=== PATIENT | female | born 1955 | race Caucasian/White ===

== ENCOUNTER 2023-05-29 20:05 | Inpatient (IN) ==
[2023-05-29] MEDS ORDERED: LASIX IVP STA (20:54)
[2023-05-29 20:55] LABS: BASOPHILS # (AUTO) 0.1 K/uL (0-0.2); BASOPHILS % (AUTO) 0.7 % (0.0-3.0); EOSINOPHILS # (AUTO) 0.6 K/ul (0.0-0.7); EOSINOPHILS % (AUTO) 3.3 % (0.0-7.0); HEMATOCRIT 31.9 % (37.0-47.0); HEMOGLOBIN 10.8 g/dl (12.0-16.0); IMMATURE GRANULOCYTE # (AUTO) 0.1 (0.0-1.0); IMMATURE GRANULOCYTE % (AUTO) 0.4 % (0.0-5.0); LYMPHOCYTES # (AUTO) 1.4 K/uL (0.60-3.4); LYMPHOCYTES % (AUTO) 8.5 (10.0-50.0); MEAN CORPUSCULAR HEMOGLOBIN 34.5 pg (27.0-31.0); MEAN CORPUSCULAR HGB CONC 33.9 (31.8-35.4); MEAN CORPUSCULAR VOLUME 101.9 fl (81.0-99.0); MONOCYTES # (AUTO) 1.2 K/uL (0.4-2.0); MONOCYTES % (AUTO) 7.3 (0-10); NEUTROPHILS # (AUTO) 13.2 K/ul (2.0-6.9); NEUTROPHILS % (AUTO) 79.8 % (42.2-75.2); PLATELET COUNT 195 10^3/uL (140-440); RDW COEFFICIENT OF VARIATION 14.8 % (11.6-14.8); RED BLOOD COUNT 3.13 10^6/ul (4.20-5.40); WHITE BLOOD COUNT 16.51 K/ul (4.6-10.2)
--- NOTE | 2023-05-29 21:05 | DI ---
EXAM: CHEST ONE-VIEW HISTORY: Cough COMPARISON: AP chest from 05/22/2023 FINDINGS: The cardiomediastinal silhouette is prominent. The pulmonary vasculature is normal. No c onsolidating infiltrates are detected. No pneumothoraces or pleural effusions. IMPRESSION: 1. No acute cardiopulmonary disease. .
[2023-05-29 21:08] LABS: ALANINE AMINOTRANSFERASE 31.3 U/L (0-35); ALBUMIN 2.77 g/dL (3.5-5.0); ALKALINE PHOSPHATASE 237.1 U/L (53-141); ASPARTATE AMINO TRANSFERASE 76.3 U/L (14-36); BILIRUBIN,TOTAL 3.56 mg/dL (0.2-1.3); BLOOD UREA NITROGEN 5.8 mg/dL (7-17); CALCIUM 7.53 mg/dL (8.4-10.2); CARBON DIOXIDE 27.8 mmol/L (22-30.0); CREATININE 0.72 mg/dL (0.60-1.30); GLUCOSE 108.8 mg/dL (74-106); POTASSIUM 4.37 mmol/L (3.5-5.1); SODIUM 134.8 mmol/L (134.5-145); TOTAL PROTEIN 6.99 g/dL (6.3-8.2)
[2023-05-29 21:20] LABS: TROPONIN I 0.013 ng/ml (0.0000-0.120)
--- NOTE | 2023-05-29 22:19 | ED.PDOC ---
General ED Provider: Dr. MICHAEL BISHOP MD Chief Complaint: Extremity Swelling/Pain Stated Complaint: Pain and swelling in both lower extremities Time Seen by Provider: 05/29/23 20:25 Information Source: Patient and EMT Nursing and Triage Documentation Reviewed and Agree: Yes Review of Systems Review Of Systems Constitutional: Reports Malaise and Weakness All Other Systems: Reviewed and Negative [facility] Social History (Updated 05/30/23 @ 01:35 by TOD LORENZO RN) Smoking and tobacco status: Unknown if ever smoked Physical Exam Physical Exam Appearance: Reports Ill-appearing and No pain distress Ill-appearing: Mild Pain Distress: None Eyes: Reports ELVIA ENT: Reports Ears normal and Nose normal Neck: Supple Respiratory: Reports Airway patent, Breath sounds clear and Breath sounds equal Cardiovascular: Reports Pulses normal, No rub and No murmur GI/: Reports Soft, Nontender and No masses Musculoskeletal: Reports Edema (2+ edema of BLE) Skin: Reports Warm Neurological: Reports Sensation intact Psychiatric: Reports Affect appropriate Interpretation EKG Interpretation EKG Interpretation By: ED Physician Time of EKG #1: 20:32 Rate: Normal and Tachy Rhythm: Sinus Ectopy: None [place]: NL ST Segment: Normal Interpretation: No acute ST changes Critical Care Note Critical Care Note Total Critical Care Time (mins): 0 Course Course 05/29/23 20:46 05/29/23 20:46 Orders, Labs, Meds: Lab Review 05/29/23 05/29/23 05/29/23 20:46 22:03 22:17 WBC 16.51 H RBC 3.13 L Hgb 10.8 L Hct 31.9 L MCV 101.9 H MCH 34.5 H MCHC 33.9 RDW Coeff of [place] 14.8 Plt Count 195 Immature Gran % (Auto) 0.4 Neut % (Auto) 79.8 H Lymph % (Auto) 8.5 L [place] % (Auto) 7.3 Eos % (Auto) 3.3 Baso % (Auto) 0.7 Neut # (Auto) 13.2 H Lymph # (Auto) 1.4 [place] # (Auto) 1.2 Eos # (Auto) 0.6 Baso # (Auto) 0.1 Immature Gran # (Auto) 0.1 Sodium 134.8 Potassium 4.37 Chloride 100.0 Carbon Dioxide 27.8 Anion Gap 11.37 BUN 5.8 L Creatinine 0.72 Estimated GFR (MDRD) 81.00 BUN/Creatinine Ratio 8.05 Glucose 108.8 H Lactic Acid 2.25 H Calcium 7.53 L Total Bilirubin 3.56 H AST 76.3 H ALT 31.3 Alkaline Phosphatase 237.1 H Troponin I 0.013 NT-Pro-B Natriuret Pep 1580 H Total Protein 6.99 Albumin 2.77 L Globulin 4.22 Albumin/Globulin Ratio 0.65 Urine Color Yellow Urine Clarity Clear Urine pH 7.0 Ur Specific [place] 1.015 Urine Protein Negative Urine Glucose (UA) Negative Urine Ketones Negative Urine Blood Trace-lysed Urine Nitrite Negative Urine Bilirubin Negative Urine Urobilinogen 0.2 Ur Leukocyte Esterase Trace H Urine Microscopic RBC 2-5 Urine Microscopic WBC 5-10 Ur Squamous Epith Cells 2-5 Ur Renal Epithelial Cell 0-2 Triple Phos Crystals 1+ Urine Bacteria 3+ Granular Casts 0-2 Fine Granular Casts 2-5 SARS CoV-2 RNA Rapid ONUR Negative Orders Category Date Time Status ADMIT OBSERVATION [PLACE PATIENT OBSERVATION] .TO ADMISSION 05/29/23 23:16 Active MEDSURG (MONITORED BED) EKG-(ED ONLY) Stat CARDIO 05/29/23 20:25 Completed TELEMETRY MONITORING TELE CARE 05/29/23 23:16 Active ED LABEL STAMPER APPLIED .ONCE EMERGENCY 05/29/23 20:25 Active BLOOD CULTURE Stat LAB 05/29/23 23:49 Received CBC W/ AUTO DIFF Stat LAB 05/29/23 20:46 Completed COMPREHENSIVE METABOLIC PANEL Stat LAB 05/29/23 20:46 Completed COVID [SARS COV-2 RNA RAPID ONUR] Stat LAB 05/29/23 22:17 Completed LACTIC ACID Stat LAB 05/29/23 20:46 Completed PROBNP ED [NT-PROBNP(ED)] Stat LAB 05/29/23 20:46 Completed TROPONIN I Stat LAB 05/29/23 20:46 Completed URINALYSIS C & S IF INDICATED Stat LAB 05/29/23 22:03 Completed URINE CULTURE Stat LAB 05/29/23 22:03 Received Furosemide [Lasix] Meds 05/29/23 20:54 Discontinued 20 mg IVP ONCE STA Piperacillin Sodium/Tazobactam [Zosyn 3.375 gm] 3.375 Meds 05/29/23 23:07 Discontinued gm 0.9 % Sodium Chloride [Sodium Chloride 100Ml] 100 ml IV ONCE CHEST, 1V AP ONLY Stat RADS 05/29/23 20:25 Completed Medications Generic Name Dose Route Start Last Admin Trade Name Freq PRN Reason Stop Dose Admin Furosemide 40 mg 05/30/23 06:00 Furosemide Inj 40 Mg/4 Ml Vial IVP BIDAC2 LOGAN Piperacillin Sod/Tazobactam 100 mls @ 200 mls/hr 05/30/23 06:00 Sod 3.375 gm/ Sodium Chloride IV 06/02/23 05:59 Q6HR LOGAN Ibuprofen 600 mg 05/30/23 00:40 05/30/23 00:52 Ibuprofen 600 Mg Tablet PO 600 mg Q6H PRN Administration Mild Pain Ondansetron HCl 4 mg 05/29/23 23:48 Ondansetron Hcl/Pf 4 Mg/2 Ml Sdv IVP Q6H PRN Nausea / Vomiting Discontinued Medications Generic Name Dose Route Start Last Admin Trade Name Freq PRN Reason Stop Dose Admin Furosemide 20 mg 05/29/23 20:54 05/29/23 21:08 Furosemide Inj 20 Mg/2 Ml Vial IVP 05/29/23 20:55 20 mg ONCE STA Administration Piperacillin Sod/Tazobactam 100 mls @ 200 mls/hr 05/29/23 23:07 05/29/23 23 :29 Sod 3.375 gm/ Sodium Chloride IV 05/29/23 23:36 200 mls/hr ONCE ONE Administration Ketorolac Tromethamine 30 mg 05/30/23 00:07 Ketorolac Tromethamine 30 Mg/Ml Vial IVP 05/30/23 00:08 ONCE ONE Vital Signs: Temp Pulse Resp BP Pulse Ox 05/29/23 20:07 98.6 F 108 H 14 104/50 L 99 67 years old female past medical history of hypertension who came to the ER from home for swelling in both lower extremities with redness over the past few days. Patient was recently admitted to [facility] for the same complaint. Obtain records from [facility] medical records reviewed. Physical exam showed 2+ edema lower extremities with redness consistent with cellulitis patient also leukocytosis was given 1 dose of Zosyn. Patient also have elevated proBNP. Patient lives by herself unable to perform her daily activities asking for placement at group home facility. Case discussed with hospitalist Davidson and she accepted the patient to be admitted to our services for IV antibiotics and physical therapy evaluation cardiac echo and possible placement. Discharge Plan Discharge Patient Disposition: ADMITTED INPATIENT Discharge Problem: Edema of lower extremity, Cellulitis Did you review [place] SUPER[employer]OR FILTER [employer]SEM[employer]Y for ALL controlled substances?: Not Applicable ED Provider: MICHAEL BISHOP Condition: Stable Physician Progress Note: []
[2023-05-29 22:22] LABS: BILIRUBIN,URINE Negative (NEGATIVE); CLARITY,URINE Clear (CLEAR); COLOR,URINE Yellow (YELLOW); GLUCOSE, URINE (UA) Negative (NEGATIVE); KETONES,URINE Negative (NEGATIVE); LEUKOCYTE ESTERASE ,URINE Trace (NEGATIVE); NITRITE,URINE Negative (NEGATIVE); PROTEIN,URINE Negative (NEGATIVE); URINE, BLOOD Trace-lysed (NEGATIVE); UROBILINOGEN,URINE 0.2 (0.2)
[2023-05-29 22:33] LABS: RENAL EPITHELIAL CELLS,URINE 0-2 (NOT PRESENT); TRIPLE PHOSPHATE CRYSTAL,UR 1+ (NOT PRESENT)
[2023-05-29 22:34] LABS: BACTERIA,URINE 3+ (NOT PRESENT); GRANULAR CASTS,URINE 0-2 (NOT PRESENT)
[2023-05-29 22:36] LABS: SARS COV-2 RNA RAPID NAAT NEGATIVE (NEGATIVE)
[2023-05-29] MEDS ORDERED: ZOSYN 3.375 GM 3.375 GM in SODIUM CHLORIDE 100ML 100 ML IV ONE (23:07)
[2023-05-29] MEDS ORDERED: ZOFRAN 4 MG/2 ML IVP PRN (23:48)
[2023-05-30] MEDS ORDERED: TORADOL IVP ONE ×2 (00:07→09:30)
[2023-05-30] MEDS: MOTRIN PO PRN ×2 (00:52→20:40)
[2023-05-30 01:33] VITALS: BMI 31.7
[2023-05-30 04:10] LABS: AMPHETAMINE SCREEN,URINE NEGATIVE (NEGATIVE); BARBITURATE SCREEN,URINE NEGATIVE (NEGATIVE); BENZODIAZEPINES SCREEN,URINE POSITIVE (NEGATIVE); CANNABINOID SCREEN,URINE NEGATIVE (NEGATIVE); COCAIN SCREEN,URINE NEGATIVE (NEGATIVE); METHADONE URINE SCREEN NEGATIVE (NEGATIVE); METHAMPHETAMINES SCREEN,URINE NEGATIVE (NEGATIVE); OPIATE SCREEN,URINE NEGATIVE (NEGATIVE); OXYCODONE URINE SCREEN NEGATIVE (NEGATIVE); PHENCYCLIDINE SCREEN,URINE NEGATIVE (NEGATIVE); PROPOXYPHENE URINE SCREEN NEGATIVE (NEGATIVE); TRICYCLIC ANTIDEPRESSANTS URIN NEGATIVE (NEGATIVE)
[2023-05-30 06:00] LABS: BASOPHILS # (AUTO) 0.1 K/uL (0-0.2); BASOPHILS % (AUTO) 0.7 % (0.0-3.0); EOSINOPHILS % (AUTO) 6.5 % (0.0-7.0); HEMATOCRIT 28.3 % (37.0-47.0); HEMOGLOBIN 9.5 g/dl (12.0-16.0); IMMATURE GRANULOCYTE # (AUTO) 0.1 (0.0-1.0); IMMATURE GRANULOCYTE % (AUTO) 0.3 % (0.0-5.0); LYMPHOCYTES # (AUTO) 1.7 K/uL (0.60-3.4); LYMPHOCYTES % (AUTO) 11.3 (10.0-50.0); MEAN CORPUSCULAR HEMOGLOBIN 34.1 pg (27.0-31.0); MEAN CORPUSCULAR HGB CONC 33.6 (31.8-35.4); MEAN CORPUSCULAR VOLUME 101.4 fl (81.0-99.0); MONOCYTES # (AUTO) 1.1 K/uL (0.4-2.0); MONOCYTES % (AUTO) 7.4 (0-10); NEUTROPHILS # (AUTO) 10.8 K/ul (2.0-6.9); NEUTROPHILS % (AUTO) 73.8 % (42.2-75.2); PLATELET COUNT 179 10^3/uL (140-440); RDW COEFFICIENT OF VARIATION 14.7 % (11.6-14.8); RED BLOOD COUNT 2.79 10^6/ul (4.20-5.40); WHITE BLOOD COUNT 14.59 K/ul (4.6-10.2)
[2023-05-30] MEDS ORDERED: ZOSYN 3.375 GM 3.375 GM in SODIUM CHLORIDE 100ML 100 ML IV SCH (06:00)
[2023-05-30] MEDS: LASIX IVP SCH ×2 (06:02→17:50)
[2023-05-30 06:10] LABS: ALBUMIN 2.37 g/dL (3.5-5.0); ALKALINE PHOSPHATASE 201.1 U/L (53-141); ASPARTATE AMINO TRANSFERASE 63.1 U/L (14-36); BILIRUBIN,TOTAL 3.55 mg/dL (0.2-1.3); BLOOD UREA NITROGEN 6.3 mg/dL (7-17); CALCIUM 7.21 mg/dL (8.4-10.2); CARBON DIOXIDE 25.4 mmol/L (22-30.0); CHLORIDE 102.7 mmol/L (98-107); CREATININE 0.74 mg/dL (0.60-1.30); POTASSIUM 4.01 mmol/L (3.5-5.1); SODIUM 132.8 mmol/L (134.5-145); TOTAL PROTEIN 6.19 g/dL (6.3-8.2)
[2023-05-30] MEDS ORDERED: VANCOMYCIN 1 GRAM/200 ML PREMIX 1 GM/200 ML BAG IV SCH (09:55)
--- NOTE | 2023-05-30 11:31 | PCM ---
Date of Service Date Seen by Provider: 05/30/23 Time Seen by Provider: 09:15 Admit Day/Time Admission Date: 05/29/23 Reason for Admission Chief Complaint: CELLULITIS Hospital Provider Hospital Provider[facility] History of Present Illness History of Present Illness: 67 year old female presented to the ER with complaints of constant bilateral leg pain and swelling for a couple days. She was initially seen at [facility] on 05/05 and admitted for leukocytosis, new onset CHF, and cellulitis. She was treated with vancomycin and zosyn. No infectious source was found. Diagnosed with diastolic heart failure with pEF and discharged home with lasix 20 mg daily. She then went to [facility] on 05/12 for the same complaints and was admitted with the same diagnoses in additional to possible UTI. No urine culture was collected. Blood cultures were negative x 2. She received rocephin and vancomycin and tapered to PO Keflex and Clindamycin in which she had an allergic reaction to. She was discharged without antibiotics or any other medications. After being discharged from [facility] on 05/24, she returned to [facility] again on 05/26 for edema that was unchanged. Then again on 05/27 for a fall with no injury. At that time, she was discharged with lasix 20 mg BID x 5 days but was unable to pick it up from the pharmacy. She returned to the ER last night with complaints of bilateral edema and leg pain that has been ongoing for the past 3 months but worse this past month. She states that the pain starts in her hips and radiates down into her shins. Desceibes the pain as an ache. Aggravating factor is ambulation. No relieving factors. Has not taken anything for pain at home. Her 5-6 months ago and states that she is having difficulties grieving his loss. Has history of chronic alcohol use and reported at [facility] she is a daily beer drinker. However, voiced today she only drinks 1-2 per week. Previous labs consistent with liver disease as well as imaging and patient reports she was unaware of this. [facility] recommended PCP send referral to hse coordinator for possible TIPS procedure. Patient reports that she has no children or family to help her get to appointments or olive picker her medications. Requesting services for help at home. Denies SI/HI. Refusing psychiatric services or medications. Case Discussed With Case Discussed With: Patient's case was discussed with the ER Physicians, Dr. Javed [facility] Medical History (Updated 05/30/23 @ 11:59 by NANCY CARRERO) Abscess L02.91 - Cutaneous abscess, unspecified (ICD-10) Depression F32.A - Depression, unspecified (ICD-10) Diastolic heart failure I50.30 - Unspecified diastolic (congestive) heart failure (ICD-10) Emphysema/COPD J43.9 - Emphysema, unspecified (ICD-10) Hyperlipidemia E78.5 - Hyperlipidemia, unspecified (ICD-10) Hypertension I10 - Essential (primary) hypertension (ICD-10) Varicose veins of both legs with edema I83.893 - Varicose veins of bilateral lower extremities with other complications (ICD-10) Surgical History History of back surgery Z98.890 - Other specified postprocedural states (ICD-10) Social History Smoking and tobacco status: Unknown if ever smoked Allergies Allergies Allergy/AdvReac Type Severity Reaction Status Date / Time codeine AdvReac Verified 05/29/23 22:34 lisinopril AdvReac Intermediate cough Uncoded 05/29/23 22:34 Current Medications Home Medications 1 [No Reported Medications] 05/29/23 [History Confirmed 05/29/23 Last Taken Unknown] Home Furosemide (Furosemide Inj 40 Mg/4 Ml Vial) 40 mg IVP BIDAC2 LOGAN Last Admin: 05/30/23 06:02 Dose: 40 mg CEFEPIME 2 GM/D5W (Maxipime 2 Gm/50 Ml D5w) 2 gm in 50 mls @ 100 mls/hr IV Q8HR LOGAN Stop: 06/02/23 12:59 VANCOMYCIN/WATER FOR INJ (PEG) (Vancomycin 1 Gram/200 Ml Premix) 1 gm in 200 mls @ 200 mls/hr IV Q12HR LOGAN Stop: 06/02/23 10:29 Last Admin: 05/30/23 12:14 Dose: 200 mls/hr Ibuprofen (Ibuprofen 600 Mg Tablet) 600 mg PO Q6H PRN PRN Reason: Mild Pain Last Admin: 05/30/23 00:52 Dose: 600 mg Ondansetron HCl (Ondansetron Hcl/Pf 4 Mg/2 Ml Sdv) 4 mg IVP Q6H PRN PRN Reason: Nausea / Vomiting Discontinued Medications Furosemide (Furosemide Inj 20 Mg/2 Ml Vial) 20 mg IVP ONCE STA Stop: 05/29/23 20:55 Last Admin: 05/29/23 21:08 Dose: 20 mg Piperacillin Sod/Tazobactam (Sod 3.375 gm/ Sodium Chloride) 100 mls @ 200 mls/hr IV ONCE ONE Stop: 05/29/23 23:36 Last Admin: 05/29/23 23:29 Dose: 200 mls/hr Piperacillin Sod/Tazobactam (Sod 3.375 gm/ Sodium Chloride) 100 mls @ 200 mls/hr IV Q6HR LOGAN Stop: 06/02/23 05:59 Last Admin: 05/30/23 05:58 Dose: 200 mls/hr Ketorolac Tromethamine (Ketorolac Tromethamine 30 Mg/Ml Vial) 30 mg IVP ONCE ONE Stop: 05/30/23 00:08 Last Admin: 05/30/23 09:55 Dose: Not Given Ketorolac Tromethamine (Ketorolac Tromethamine 15 Mg/Ml Vial) 15 mg IVP ONCE ONE Stop: 05/30/23 09:31 Last Admin: 05/30/23 09:59 Dose: 15 mg Review of Systems Constitutional: Reports No symptoms Head: Reports Normocephalic Eyes: Reports No symptoms Ears: Reports No symptoms Nose: Reports No symptoms Mouth: Reports No symptoms Throat: Reports No symptoms Cardiovascular: Reports No symptoms Respiratory: Reports No symptoms Gastrointestinal: Reports No symptoms Genitourinary: Reports No Symptoms Musculoskeletal: Reports No symptoms Endocrine: Reports No symptoms Hematology: Reports No symptoms Immunology: Reports No symptoms Neurological: Reports No symptoms Psychiatric: Reports Depression Physical examination Most Recent Vital Signs: Most Recent Vital Signs Temperature 97.6 F 05/30/23 10:00 Temperature Source Oral 05/30/23 10:00 Temperature Source Oral 05/29/23 20:07 Pulse Rate 79 05/30/23 10:00 Respiratory Rate 16 05/30/23 10:00 Blood Pressure 93/58 L 05/30/23 10:00 Blood Pressure Mean 69 05/30/23 10:00 Blood Pressure Right Arm 100/56 05/30/23 00:17 Blood Pressure Location Right Arm 05/30/23 10:00 Blood Pressure Position Supine 05/30/23 10:00 O2 Sat by Pulse Oximetry 100 05/30/23 10:00 Oxygen Delivery Method Room Air 05/30/23 10:00 Height 5 ft 3 in 05/30/23 00:17 Weight 180 lb 05/30/23 05:13 Telemetry Type Remote Telemetry 05/30/23 00:42 Telemetry Monitoring Started 05/30/23 00:42 Telemetry Heart Rate 104 H 05/30/23 00:42 EKG KS Interval 0.19 05/30/23 00:42 EKG QRS Interval 0.08 05/30/23 00:[address] 05/30/23 00:42 Appearance: Positive Well-appearing, No Apparent Distress and Alert and Oriented x3 Skin: Positive Jaundice HEENT: Positive Normocephalic Neck: Positive Supple Chest/Lungs: Positive Symmetrical With Equal Breath Sounds, Clear to Auscultation Bilaterally and Good Air Movement all 4 Lung [place] Heart: Positive RRR and Pulses Normal GI/: Positive Soft, Nontender, Bowel Sounds Normal, No Distention and No Organomegaly Musculoskeletal: Positive Not Examined Extremities: Positive Other (Chronic thigh lymphedema) Neurological: Positive Alert and Oriented Psychiatric: Positive Oriented x4, Appropriate Affect, Intact Memory and Normal Judgement Labs This Visit Labs This Visit: Labs This Visit 05/29/23 05/29/23 05/29/23 03:54 20:46 22:03 WBC 16.51 H RBC 3.13 L Hgb 10.8 L Hct 31.9 L MCV 101.9 H MCH 34.5 H MCHC 33.9 RDW Coeff of [place] 14.8 Plt Count 195 Immature Gran % (Auto) 0.4 Neut % (Auto) 79.8 H Lymph % (Auto) 8.5 L [place] % (Auto) 7.3 Eos % (Auto) 3.3 Baso % (Auto) 0.7 Neut # (Auto) 13.2 H Lymph # (Auto) 1.4 [place] # (Auto) 1.2 Eos # (Auto) 0.6 Baso # (Auto) 0.1 Immature Gran # (Auto) 0.1 Sodium 134.8 Potassium 4.37 Chloride 100.0 Carbon Dioxide 27.8 Anion Gap 11.37 BUN 5.8 L Creatinine 0.72 Estimated GFR (MDRD) 81.00 BUN/Creatinine Ratio 8.05 Glucose 108.8 H Lactic Acid 2.25 H Calcium 7.53 L Total Bilirubin 3.56 H AST 76.3 H ALT 31.3 Alkaline Phosphatase 237.1 H Ammonia Troponin I 0.013 NT-Pro-B Natriuret Pep 1580 H Total Protein 6.99 Albumin 2.77 L Globulin 4.22 Albumin/Globulin Ratio 0.65 Procalcitonin Urine Color Yellow Urine Clarity Clear Urine pH 7.0 Ur Specific [place] 1.015 Urine Protein Negative Urine Glucose (UA) Negative Urine Ketones Negative Urine Blood Trace-lysed Urine Nitrite Negative Urine Bilirubin Negative Urine Urobilinogen 0.2 Ur Leukocyte Esterase Trace H Urine Microscopic RBC 2-5 Urine Microscopic WBC 5-10 Ur Squamous Epith Cells 2-5 Ur Renal Epithelial Cell 0-2 Triple Phos Crystals 1+ Urine Bacteria 3+ Granular Casts 0-2 Fine Granular Casts 2-5 Urine Opiates Screen Negative Ur Oxycodone Screen Negative Urine Methadone Screen Negative Ur Propoxyphene Screen Negative Ur Barbiturates Screen Negative U Tricyclic Antidepress Negative Ur Phencyclidine Scrn Negative Ur Amphetamine Screen Negative U Methamphetamines Scrn Negative U Benzodiazepines Scrn Positive H Urine Cocaine Screen Negative U Cannabinoids Screen Negative Plasma/Serum Alcohol SARS CoV-2 RNA Rapid ONUR 05/29/23 05/29/23 05/30/23 22:17 23:49 00:10 WBC RBC Hgb Hct MCV MCH MCHC RDW Coeff of [place] Plt Count Immature Gran % (Auto) Neut % (Auto) Lymph % (Auto) [place] % (Auto) Eos % (Auto) Baso % (Auto) Neut # (Auto) Lymph # (Auto) [place] # (Auto) Eos # (Auto) Baso # (Auto) Immature Gran # (Auto) Sodium Potassium Chloride Carbon Dioxide Anion Gap BUN Creatinine Estimated GFR (MDRD) BUN/Creatinine Ratio Glucose Lactic Acid Calcium Total Bilirubin AST ALT Alkaline Phosphatase Ammonia 60.3 H Troponin I NT-Pro-B Natriuret Pep Total Protein Albumin Globulin Albumin/Globulin Ratio Procalcitonin 0.20 H Urine Color Urine Clarity Urine pH Ur Specific [place] Urine Protein Urine Glucose (UA) Urine Ketones Urine Blood Urine Nitrite Urine Bilirubin Urine Urobilinogen Ur Leukocyte Esterase Urine Microscopic RBC Urine Microscopic WBC Ur Squamous Epith Cells Ur Renal Epithelial Cell Triple Phos Crystals Urine Bacteria Granular Casts Fine Granular Casts Urine Opiates Screen Ur Oxycodone Screen Urine Methadone Screen Ur Propoxyphene Screen Ur Barbiturates Screen U Tricyclic Antidepress Ur Phencyclidine Scrn Ur Amphetamine Screen U Methamphetamines Scrn U Benzodiazepines Scrn Urine Cocaine Screen U Cannabinoids Screen Plasma/Serum Alcohol < 10.0 SARS CoV-2 RNA Rapid ONUR Negative 05/30/23 05:02 WBC 14.59 H RBC 2.79 L Hgb 9.5 L Hct 28.3 L MCV 101.4 H MCH 34.1 H MCHC 33.6 RDW Coeff of [place] 14.7 Plt Count 179 Immature Gran % (Auto) 0.3 Neut % (Auto) 73.8 Lymph % (Auto) 11.3 [place] % (Auto) 7.4 Eos % (Auto) 6.5 Baso % (Auto) 0.7 Neut # (Auto) 10.8 H Lymph # (Auto) 1.7 [place] # (Auto) 1.1 Eos # (Auto) 1.0 H Baso # (Auto) 0.1 Immature Gran # (Auto) 0.1 Sodium 132.8 L Potassium 4.01 Chloride 102.7 Carbon Dioxide 25.4 Anion Gap 8.71 BUN 6.3 L Creatinine 0.74 Estimated GFR (MDRD) 78.00 BUN/Creatinine Ratio 8.51 Glucose 97.0 Lactic Acid Calcium 7.21 L Total Bilirubin 3.55 H AST 63.1 H ALT 27.0 Alkaline Phosphatase 201.1 H D Ammonia Troponin I NT-Pro-B Natriuret Pep Total Protein 6.19 L Albumin 2.37 L Globulin 3.82 Albumin/Globulin Ratio 0.62 Procalcitonin Urine Color Urine Clarity Urine pH Ur Specific [place] Urine Protein Urine Glucose (UA) Urine Ketones Urine Blood Urine Nitrite Urine Bilirubin Urine Urobilinogen Ur Leukocyte Esterase Urine Microscopic RBC Urine Microscopic WBC Ur Squamous Epith Cells Ur Renal Epithelial Cell Triple Phos Crystals Urine Bacteria Granular Casts Fine Granular Casts Urine Opiates Screen Ur Oxycodone Screen Urine Methadone Screen Ur Propoxyphene Screen Ur Barbiturates Screen U Tricyclic Antidepress Ur Phencyclidine Scrn Ur Amphetamine Screen U Methamphetamines Scrn U Benzodiazepines Scrn Urine Cocaine Screen U Cannabinoids Screen Plasma/Serum Alcohol SARS CoV-2 RNA Rapid ONUR Imaging Imaging: EXAM: CHEST ONE-VIEW HISTORY: Cough COMPARISON: AP chest from 05/22/2023 FINDINGS: The cardiomediastinal silhouette is prominent. The pulmonary vasculature is normal. No consolidating infiltrates are detected. No pneumothoraces or pleural effusions. IMPRESSION: 1. No acute cardiopulmonary disease. Review Statement Review Statement: I have independently reviewed and interpreted the labs/EKGs/imaging that were ordered by the ER provider. I have reviewed all outside records that are available currently in our EMR including imaging/notes/labs from previous visits. Plan Plan: 1. Sepsis - Blood cultures pending, Vancomycin 1 gm, Cefepime 2 gm 2. UTI - Cultures pending, antibiotics as above 3. Diastolic heart failure exacerbation - 05/06 ECHO done at [facility] EF of 70% with grade one diastolic disfunction, IV Lasix 40 mg BID, daily weights, I&O, 1800 mL fluid restriction 4. Liver failure - Chronic, continues to drink alcohol, ammonia is 60.3, oriented x 3, monitor 5. Weakness/Frequent Falls - PT/OT to eval and treat 6. Chronic Alcoholism - monitor for withdrawal, CIWA assesment ordered PRN, will address if needed DVT Prophylaxis: Ambulation Time Spent: Greater than 80 minutes spent with patient, 50% of the time spent with this patient was devoted to counseling and coordination of care. [facility] minutes spent discussing advance care planning. Disposition: Admit to: Med/Surg Inpatient DNR Discussed Plan of Care with Dr. Eda Barry. Medications Medication Orders: Medications Ordered Category Date Time Status Cefepime 2 gm/D5w [Maxipime 2 gm/50 ml D5w] Meds 05/30/23 13:00 Active 2 gm in 50 ml IV Q8HR Furosemide [Lasix] Meds 05/30/23 06:00 Active 40 mg IVP BIDAC2 Ibuprofen [Motrin] Meds 05/30/23 00:40 Active 600 mg PO Q6H PRN Ondansetron HCl/Pf [Zofran 4 mg/2 ml] Meds 05/29/23 23:48 Active 4 mg IVP Q6H PRN Vancomycin/Water For Inj (Peg) [Vancomycin 1 Gram/200 Meds 05/30/23 10:30 Active ml Premix] 1 gm in 200 ml IV Q12HR
[2023-05-30] MEDS ORDERED: MAXIPIME 2 GM/50 ML D5W 2 GM/50 ML BAG IV SCH (12:00)
--- NOTE | 2023-05-30 12:00 | RS.PTINEVL ---
Subjective Patient information Date of Evaluation: 05/30/23 Date of Arrival on Unit: 05/30/23 Admitted From:: Home Diagnosis: sepsis, diastolic heart failure exacerbation, liver failure Usual Living Arrangement: Alone Living Arrangement Comments: 5 months ago Home Environment: House, Stairs (few) (2) and Rail Medical History: CHF Medical History Comments:: etoh abuse LATEX ALLERGY?: No Surgical History: Lumbar Spine Medications: see chart Subjective Information/ Patient Comments:: pt states that her legs hurt. States that "when they get the water out of my legs, I will be fine." pt is tearful, with slurred speech at times. pt initially refused and required encouragement to participate with PT. 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 Difficult to get information from patient. Current Level of Function: Partially Dependent Current Equipment Used at Home: Nebulizer Pain Assessement Location Bilateral LE's: Description: Aching Pain Behavior: Rubbing Site and Facial Grimacing Pain Aggravating Factors: Changing Position Pain Alleviating Factors: Medication Interventions Objective Patient Orientation: Person and Place Current Interventions: Telemetry Observation: pt with slurred speech at times. BLE edema with skin peeling Range of Motion ROM Right Upper Extremity AROM: WFL's Left Upper Extremity AROM: WFL's Right Lower Extremity AROM: WFL's Left Lower Extremity AROM: WFL's Muscle Strength Muscle Strength Right Upper Extremity: Mild Weakness (grossly 4/5 ) Left Upper Extremity: Mild Weakness (grossly 4/5 ) Right Lower Extremity: Mild Weakness (hip flex 4-/5, knee flex 4-/5, ext 4/5, ankle DF/PF 4/5 ) Left Lower Extremity: Mild Weakness (hip flex 4-/5, knee flex 4-/5, ext 4/5, ankle DF/PF 4/5 ) Sensation Sensation Right Upper Extremity: Intact/Normal Left Upper Extremity: Intact/Normal Right Lower Extremity: Intact/Normal Left Lower Extremity: Intact/Normal Palpation Palpation Findings: Tenderness (BLE ) Balance Sitting Balance and Reactions Static Sitting Balance: Fair (fair+) Dynamic Sitting Balance: Fair Standing Balance and Reactions Static Standing Balance: Poor Dynamic Standing Balance: Poor Standing Equilibrium Reactions: Delayed Left and Delayed Right Standing Protective Reactions: Delayed Left and Delayed Right Functional Mobility Bed Mobility Rolling R/L: Min Assist Supine to Sit: Min Assist Transfers Sit to Stand: CGA and Min Assist Stand to Sit: CGA Safety Awareness Safety Awareness: Poor NU INDEX SCORE: n/a Ambulation Ambulation Assistive Device Used: Rolling Walker Orthotic/Prosthetic Device: No Distance: 110ft Assistance needed with Ambulation: CGA Gait Deviations: Step-to gait, Forward posture, Short stride and Deviates from path Ambulation Comments: pt amb with decreased step length, flexed posture. Factors Affecting Ambulation: Decreased Balance, Pain, Weakness, Decreased Coordination, Decreased Safety and Limited Endurance Treatment time Units charged Gait trainin Time with patient Length of Evaluation: 19 Total treatment time: 34 Patient Education Education Patient Education: Activity Modification and Education of Plan of Care Teaching Recipient: Patient Teaching Methods: Discussion Comments: discussion regarding safety at home Assessment Assessment Problem List:: Decreased level of function, Requires training/education, Decreased safety/Risk of falls, Weakness and Pain limits previous level of function Rehab Potential: Fair Further Therapy Indicated?: Yes Candidate for Swing Bed for Therapy Services?: Feel pt may be a candidate for swing bed for therapy if pt agreeable to participate. Evaluation Complexity: HISTORY: Medium, EXAM OF BODY SYSTEMS: Medium, CLINICAL PRESENTATION: Medium and CLINICAL DECISION MAKING: Medium Patient's Goal(s): "I want to go home to my animals." Short Term Goals GOAL #1: pt independent with rolling and scooting in bed Goal to be met by: 06/02/23 GOAL #2: Transfer sup to/from sit CGA x 1 Goal to be met by: 06/02/23 GOAL #3: Transfer sit to/from stand CGA Goal to be met by: 06/02/23 GOAL #4: pt amb with AAD 140ft with CGA no LOB Goal to be met by: 06/02/23 GOAL #5: Improve BLE strength 4+ to 5/5 Goal to be met by: 06/02/23 Piano Regulator Inspector Goals GOAL #1: pt transfer sup to/from sit to/from stand independently Goal to be met by: 06/05/23 GOAL #2: pt amb functional household distances w AAD independently Goal to be met by: 06/05/23 GOAL #3: Ascend/descend 2 steps w HR Goal to be met by: 06/05/23 Plan Plan of Care: Therapeutic EX, Neuromuscular Re-Educ and Therapeutic Activity Other:: gait training Frequency of Treatment: 1-2 X day, as tolerated Duration of Treatment: 1 Week Anticipated Discharge Destination: Home Treatment Diagnosis (ICD 10 Codes): impaired balance R 26.81 difficulty walking R 26.2 weakness M62.81 Has the Physician been added for Co-signature?: Yes
[2023-05-30] MEDS: VANCOMYCIN 1 GRAM/200 ML PREMIX 1 GM/200 ML BAG IV SCH ×2 (12:14→21:22)
[2023-05-30] MEDS: MAXIPIME 2 GM/50 ML D5W 2 GM/50 ML BAG IV SCH ×2 (14:16→20:40)
[2023-05-31] MEDS: MOTRIN PO PRN ×2 (02:29→08:28)
[2023-05-31] MEDS: LASIX IVP SCH (05:03)
[2023-05-31] MEDS: MAXIPIME 2 GM/50 ML D5W 2 GM/50 ML BAG IV SCH ×3 (05:03→20:30)
[2023-05-31 06:45] LABS: BASOPHILS # (AUTO) 0.1 K/uL (0-0.2); BASOPHILS % (AUTO) 0.7 % (0.0-3.0); EOSINOPHILS # (AUTO) 1.7 K/ul (0.0-0.7); EOSINOPHILS % (AUTO) 11.1 % (0.0-7.0); HEMATOCRIT 29.9 % (37.0-47.0); HEMOGLOBIN 9.9 g/dl (12.0-16.0); IMMATURE GRANULOCYTE % (AUTO) 0.3 % (0.0-5.0); LYMPHOCYTES % (AUTO) 6.2 (10.0-50.0); MEAN CORPUSCULAR HEMOGLOBIN 34.1 pg (27.0-31.0); MEAN CORPUSCULAR HGB CONC 33.1 (31.8-35.4); MEAN CORPUSCULAR VOLUME 103.1 fl (81.0-99.0); MONOCYTES # (AUTO) 0.6 K/uL (0.4-2.0); MONOCYTES % (AUTO) 3.8 (0-10); NEUTROPHILS # (AUTO) 11.9 K/ul (2.0-6.9); NEUTROPHILS % (AUTO) 77.9 % (42.2-75.2); PLATELET COUNT 162 10^3/uL (140-440); RDW COEFFICIENT OF VARIATION 14.8 % (11.6-14.8); WHITE BLOOD COUNT 15.22 K/ul (4.6-10.2)
[2023-05-31 06:55] LABS: ALANINE AMINOTRANSFERASE 25.5 U/L (0-35); ALBUMIN 2.44 g/dL (3.5-5.0); ALKALINE PHOSPHATASE 184.9 U/L (53-141); ASPARTATE AMINO TRANSFERASE 63.4 U/L (14-36); BILIRUBIN,TOTAL 3.83 mg/dL (0.2-1.3); BLOOD UREA NITROGEN 7.8 mg/dL (7-17); CALCIUM 7.14 mg/dL (8.4-10.2); CARBON DIOXIDE 23.3 mmol/L (22-30.0); CHLORIDE 102.6 mmol/L (98-107); CREATININE 0.81 mg/dL (0.60-1.30); GLUCOSE 85.1 mg/dL (74-106); POTASSIUM 3.32 mmol/L (3.5-5.1); SODIUM 134.8 mmol/L (134.5-145); TOTAL PROTEIN 6.4 g/dL (6.3-8.2)
[2023-05-31] MEDS ORDERED: K-DUR PO ONE (08:19)
[2023-05-31] MEDS ORDERED: SODIUM CHLORIDE 500 ML IV SCH (08:30)
[2023-05-31] MEDS ORDERED: ATARAX PO ONE (09:01)
[2023-05-31] MEDS ORDERED: PEPCID IVP ONE (09:30)
[2023-05-31] MEDS ORDERED: SOLU-MEDROL 125 MG IVP ONE (09:30)
[2023-05-31] MEDS ORDERED: LIBRIUM PO ONE (09:30)
[2023-05-31] MEDS: VANCOMYCIN 1 GRAM/200 ML PREMIX 1 GM/200 ML BAG IV SCH (09:43)
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
[2023-05-31] MEDS: LIBRIUM PO PRN (20:30)
[2023-06-01] MEDS: LASIX TAB PO SCH (05:04)
[2023-06-01] MEDS: MOTRIN PO PRN (05:04)
[2023-06-01] MEDS: MAXIPIME 2 GM/50 ML D5W 2 GM/50 ML BAG IV SCH ×2 (05:04→21:04)
[2023-06-01 06:15] LABS: BASOPHILS % (AUTO) 0.1 % (0.0-3.0); HEMATOCRIT 32.9 % (37.0-47.0); HEMOGLOBIN 10.9 g/dl (12.0-16.0); IMMATURE GRANULOCYTE # (AUTO) 0.1 (0.0-1.0); IMMATURE GRANULOCYTE % (AUTO) 0.3 % (0.0-5.0); LYMPHOCYTES # (AUTO) 0.8 K/uL (0.60-3.4); LYMPHOCYTES % (AUTO) 3.9 (10.0-50.0); MEAN CORPUSCULAR HEMOGLOBIN 35.3 pg (27.0-31.0); MEAN CORPUSCULAR HGB CONC 33.1 (31.8-35.4); MEAN CORPUSCULAR VOLUME 106.5 fl (81.0-99.0); MONOCYTES # (AUTO) 0.3 K/uL (0.4-2.0); MONOCYTES % (AUTO) 1.7 (0-10); NEUTROPHILS # (AUTO) 18.3 K/ul (2.0-6.9); PLATELET COUNT 219 10^3/uL (140-440); RDW COEFFICIENT OF VARIATION 14.4 % (11.6-14.8); RED BLOOD COUNT 3.09 10^6/ul (4.20-5.40); WHITE BLOOD COUNT 19.46 K/ul (4.6-10.2)
[2023-06-01 06:24] LABS: ALANINE AMINOTRANSFERASE 25.8 U/L (0-35); ALBUMIN 2.69 g/dL (3.5-5.0); ALKALINE PHOSPHATASE 183.7 U/L (53-141); ASPARTATE AMINO TRANSFERASE 49.7 U/L (14-36); BILIRUBIN,TOTAL 3.13 mg/dL (0.2-1.3); BLOOD UREA NITROGEN 10.5 mg/dL (7-17); CALCIUM 7.51 mg/dL (8.4-10.2); CARBON DIOXIDE 22.3 mmol/L (22-30.0); CHLORIDE 103.8 mmol/L (98-107); CREATININE 1.04 mg/dL (0.60-1.30); GLUCOSE 131.7 mg/dL (74-106); POTASSIUM 3.98 mmol/L (3.5-5.1); SODIUM 135.1 mmol/L (134.5-145); TOTAL PROTEIN 6.84 g/dL (6.3-8.2)
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
[2023-06-01] MEDS ORDERED: SODIUM CHLORIDE 500 ML IV STA (13:20)
[2023-06-01] MEDS: LIBRIUM PO PRN ×2 (15:03→22:05)
[2023-06-02] MEDS ORDERED: BENADRYL PO ONE (00:33)
[2023-06-02] MEDS: LASIX TAB PO SCH (05:13)
[2023-06-02] MEDS: LIBRIUM PO PRN ×2 (05:13→21:28)
[2023-06-02 05:41] LABS: BASOPHILS # (AUTO) 0.1 K/uL (0-0.2); BASOPHILS % (AUTO) 0.4 % (0.0-3.0); EOSINOPHILS % (AUTO) 5.1 % (0.0-7.0); HEMATOCRIT 31.7 % (37.0-47.0); HEMOGLOBIN 10.5 g/dl (12.0-16.0); IMMATURE GRANULOCYTE # (AUTO) 0.1 (0.0-1.0); IMMATURE GRANULOCYTE % (AUTO) 0.4 % (0.0-5.0); LYMPHOCYTES # (AUTO) 1.7 K/uL (0.60-3.4); LYMPHOCYTES % (AUTO) 8.9 (10.0-50.0); MEAN CORPUSCULAR HEMOGLOBIN 34.1 pg (27.0-31.0); MEAN CORPUSCULAR HGB CONC 33.1 (31.8-35.4); MEAN CORPUSCULAR VOLUME 102.9 fl (81.0-99.0); MONOCYTES # (AUTO) 1.3 K/uL (0.4-2.0); MONOCYTES % (AUTO) 6.8 (0-10); NEUTROPHILS # (AUTO) 14.7 K/ul (2.0-6.9); NEUTROPHILS % (AUTO) 78.4 % (42.2-75.2); PLATELET COUNT 202 10^3/uL (140-440); RDW COEFFICIENT OF VARIATION 15.3 % (11.6-14.8); RED BLOOD COUNT 3.08 10^6/ul (4.20-5.40); WHITE BLOOD COUNT 18.75 K/ul (4.6-10.2)
[2023-06-02 06:02] LABS: ALANINE AMINOTRANSFERASE 24.8 U/L (0-35); ALBUMIN 2.63 g/dL (3.5-5.0); ALKALINE PHOSPHATASE 152.7 U/L (53-141); BILIRUBIN,TOTAL 2.8 mg/dL (0.2-1.3); BLOOD UREA NITROGEN 14.7 mg/dL (7-17); CALCIUM 7.52 mg/dL (8.4-10.2); CARBON DIOXIDE 23.1 mmol/L (22-30.0); CHLORIDE 106.3 mmol/L (98-107); CREATININE 1.05 mg/dL (0.60-1.30); GLUCOSE 84.3 mg/dL (74-106); POTASSIUM 3.69 mmol/L (3.5-5.1); SODIUM 135.8 mmol/L (134.5-145); TOTAL PROTEIN 6.62 g/dL (6.3-8.2)
[2023-06-02] MEDS: MAXIPIME 2 GM/50 ML D5W 2 GM/50 ML BAG IV SCH (09:34)
[2023-06-02] MEDS: MOTRIN PO PRN ×2 (09:34→21:28)
--- NOTE | 2023-06-02 10:49 | PCM.PROG ---
Date/Time Seen Date Seen by Provider: 06/02/23 Time Seen by Provider: 09:30 Provider [facility] Chief Complaint Chief Complaint: CELLULITIS Subjective Subjective: No events overnight. Patient itching and redness even more improved today. Continues to be disoriented to time - states it is July 1993 and Wm is the president. Objective Appearance: Positive No Apparent Distress and Alert and Oriented x3 Chest/Lungs: Positive Symmetrical With Equal Breath Sounds, Clear to Auscultation Bilaterally and Good Air Movement all 4 Lung [place] Heart: Positive RRR, Pulses Normal, No S3 Auscultated and No S4 Auscultated GI/: Positive Soft, Nontender, Bowel Sounds Normal, No Distention and No Organomegaly Musculoskeletal: Positive Normal Gait and Station Neurological: Positive Sensation Intact, Motor intact, Alert, Disorinted and Muscle Strength 5/5 in Upper and Lower Extremities Bilaterally Vital Signs Vital Signs: Vital Signs: Last 24 Hours 06/01/23 12:55 06/01/23 12:58 06/01/23 17:17 Temperature 98 F 97.5 F L Temperature Source Temporal Artery Scan Tympanic Pulse Rate 79 93 Respiratory Rate 18 18 Blood Pressure 80/42 L 108/56 L Blood Pressure Mean 54 73 Blood Pressure Location Right Arm Right Arm Blood Pressure Position Supine Sitting O2 Sat by Pulse Oximetry 97 97 Oxygen Delivery Method Room Air Room Air Weight Telemetry Strip Reading REFUSES 06/01/23 19:00 06/01/23 21:40 06/02/23 01:00 Temperature 98.5 F Temperature Source Temporal Artery Scan Pulse Rate 94 Respiratory Rate 19 Blood Pressure 112/60 Blood Pressure Mean 77 Blood Pressure Location Right Radial Artery Blood Pressure Position Supine O2 Sat by Pulse Oximetry 99 Oxygen Delivery Method Room Air Weight Telemetry Strip Reading REFUSES REFUSES 06/02/23 05:54 06/02/23 05:55 06/02/23 07:00 Temperature 97.3 F L Temperature Source Oral Pulse Rate 97 Respiratory Rate 19 Blood Pressure 112/55 L Blood Pressure Mean 74 Blood Pressure Location Left Arm Blood Pressure Position Supine O2 Sat by Pulse Oximetry 96 Oxygen Delivery Method Room Air Weight 183 lb 6 oz Telemetry Strip [place] refuses 06/02/23 08:00 06/02/23 09:52 Temperature 98.9 F Temperature Source Tympanic Pulse Rate 91 Respiratory Rate 18 18 Blood Pressure 100/58 L Blood Pressure Mean 72 Blood Pressure Location Right Arm Blood Pressure Position Supine O2 Sat by Pulse Oximetry 99 Oxygen Delivery Method Room Air Room Air Weight Telemetry Strip Reading Lab Results Lab Results: Lab Results: Last 24 Hours 06/02/23 05:09 WBC 18.75 H RBC 3.08 L Hgb 10.5 L Hct 31.7 L MCV 102.9 H MCH 34.1 H MCHC 33.1 RDW Coeff of [place] 15.3 H Plt Count 202 Immature Gran % (Auto) 0.4 Neut % (Auto) 78.4 H Lymph % (Auto) 8.9 L [place] % (Auto) 6.8 Eos % (Auto) 5.1 Baso % (Auto) 0.4 Neut # (Auto) 14.7 H Lymph # (Auto) 1.7 [place] # (Auto) 1.3 Eos # (Auto) 1.0 H Baso # (Auto) 0.1 Immature Gran # (Auto) 0.1 Sodium 135.8 Potassium 3.69 Chloride 106.3 Carbon Dioxide 23.1 Anion Gap 10.09 BUN 14.7 Creatinine 1.05 Estimated GFR (MDRD) 52.00 BUN/Creatinine Ratio 14.00 Glucose 84.3 Calcium 7.52 L Total Bilirubin 2.80 H AST 54.0 H ALT 24.8 Alkaline Phosphatase 152.7 H D Total Protein 6.62 Albumin 2.63 L Globulin 3.99 Albumin/Globulin Ratio 0.65 Additional Comments Additional Comments: I have independently reviewed and interpreted the labs/EKGs/imaging ordered during this hospital stay. I have reviewed outside records that are available in our EMR that pertain to medical stay including imaging/notes/labs from previous visits. Active Medications Active Medications: Medications Generic Name Dose Route Start Last Admin Trade Name Freq PRN Reason Stop Dose Admin Chlordiazepoxide HCl 25 mg 05/31/23 11:18 06/02/23 05:13 Chlordiazepoxide Hcl 25 Mg Capsule PO 25 mg TID PRN Administration withdrawal Ciprofloxacin 500 mg 06/02/23 21:00 Ciprofloxacin Hcl 500 Mg Tablet PO 06/05/23 20:59 [id number] LOGAN Furosemide 40 mg 06/01/23 06:00 06/02/23 05:13 Furosemide 40 Mg Tablet PO 40 mg QDAC2 LOGAN Administration Ibuprofen 600 mg 05/30/23 00:40 06/02/23 09:34 Ibuprofen 600 Mg Tablet PO 600 mg Q6H PRN Administration Mild Pain Ondansetron HCl 4 mg 05/29/23 23:48 Ondansetron Hcl/Pf 4 Mg/2 Ml Sdv IVP Q6H PRN Nausea / Vomiting Sodium Chloride 1 syr 05/30/23 21:00 06/02/23 05:13 0.9% Sodium Chloride 10 Ml Disp.Syrin IVF 1 syr Q8HR LOGAN Administration Plan Plan: 1. Sepsis - Ruled out; blood cultures negative x 2, stopped vanco due to red man syndrome, transition to PO abx today 2. UTI - Improving, Culture growth of E. Coli ESBL -. transition to PO Cipro BID today 3. Red Man Syndrome - Improving, developed generalized redness over extremities with skin peeling, hypotension, and puritis, treated with hydroxyzine, pepcid, and solu-medrol and 500mL bolus of NS, continuing to require hydroxzine prn for itching 4. Diastolic heart failure exacerbation - Resolved, 05/06 ECHO done at [facility] EF of 70% with grade one diastolic disfunction, daily weights, I&O, 1800 mL fluid restriction, transitioned to PO lasix - tolerating well 5. Liver failure - Chronic, continues to drink alcohol, monitor 6. Weakness/Frequent Falls - PT/OT to eval and treat 7. Alcoholism - agitated, confused, and shaking yesterday - received librium twice, agitated this am but no other s/sx of DT, continue librium PRN, CIWA assessment ordered PRN DVT: Ambulation Adult protective services contacted Saturday per social work. Reported they would be here to see patient on Saturday morning to determine next steps. Patient is not safe to go home due to mental status and refusal to take medications necessary for medical care. Will continue care until discharge plan is determined Saturday and patient is medically stable. Review Statement Review Statement: I have personally discussed and reviewed the patient's visit/currently labs/imaging/decision making with Dr. Barry, my supervising attending. Greater that 50 minutes spent with patient, 50% of the time spent with this patient was devoted to counseling and coordination of care.
[2023-06-02] MEDS: CIPRO PO SCH (21:28)
[2023-06-03] MEDS: CIPRO PO SCH ×2 (05:47→21:04)
[2023-06-03] MEDS: LASIX TAB PO SCH (05:47)
[2023-06-03 06:04] LABS: BASOPHILS # (AUTO) 0.1 K/uL (0-0.2); BASOPHILS % (AUTO) 0.6 % (0.0-3.0); EOSINOPHILS # (AUTO) 1.5 K/ul (0.0-0.7); EOSINOPHILS % (AUTO) 11.1 % (0.0-7.0); HEMATOCRIT 29.8 % (37.0-47.0); HEMOGLOBIN 9.7 g/dl (12.0-16.0); IMMATURE GRANULOCYTE # (AUTO) 0.1 (0.0-1.0); IMMATURE GRANULOCYTE % (AUTO) 0.4 % (0.0-5.0); LYMPHOCYTES # (AUTO) 1.8 K/uL (0.60-3.4); LYMPHOCYTES % (AUTO) 13.4 (10.0-50.0); MEAN CORPUSCULAR HEMOGLOBIN 33.9 pg (27.0-31.0); MEAN CORPUSCULAR HGB CONC 32.6 (31.8-35.4); MEAN CORPUSCULAR VOLUME 104.2 fl (81.0-99.0); MONOCYTES # (AUTO) 1.1 K/uL (0.4-2.0); MONOCYTES % (AUTO) 8.1 (0-10); NEUTROPHILS # (AUTO) 8.9 K/ul (2.0-6.9); NEUTROPHILS % (AUTO) 66.4 % (42.2-75.2); PLATELET COUNT 175 10^3/uL (140-440); RDW COEFFICIENT OF VARIATION 15.3 % (11.6-14.8); RED BLOOD COUNT 2.86 10^6/ul (4.20-5.40); WHITE BLOOD COUNT 13.34 K/ul (4.6-10.2)
[2023-06-03 06:22] LABS: ALANINE AMINOTRANSFERASE 24.8 U/L (0-35); ALBUMIN 2.38 g/dL (3.5-5.0); ALKALINE PHOSPHATASE 155.7 U/L (53-141); ASPARTATE AMINO TRANSFERASE 56.8 U/L (14-36); BILIRUBIN,TOTAL 3.13 mg/dL (0.2-1.3); BLOOD UREA NITROGEN 14.2 mg/dL (7-17); CALCIUM 7.37 mg/dL (8.4-10.2); CARBON DIOXIDE 23.1 mmol/L (22-30.0); CHLORIDE 107.5 mmol/L (98-107); CREATININE 0.87 mg/dL (0.60-1.30); GLUCOSE 72.3 mg/dL (74-106); POTASSIUM 3.59 mmol/L (3.5-5.1); SODIUM 136.1 mmol/L (134.5-145); TOTAL PROTEIN 6.3 g/dL (6.3-8.2)
[2023-06-03] MEDS: FOLIC ACID PO SCH (08:47)
[2023-06-03] MEDS: MULTIVITAMIN TABLET PO SCH (08:47)
[2023-06-03] MEDS: THIAMINE PO SCH (08:47)
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
[2023-06-03] MEDS: MOTRIN PO PRN (22:23)
[2023-06-04 05:21] LABS: BASOPHILS # (AUTO) 0.1 K/uL (0-0.2); BASOPHILS % (AUTO) 0.6 % (0.0-3.0); EOSINOPHILS # (AUTO) 1.2 K/ul (0.0-0.7); EOSINOPHILS % (AUTO) 9.6 % (0.0-7.0); HEMATOCRIT 27.7 % (37.0-47.0); HEMOGLOBIN 9.1 g/dl (12.0-16.0); IMMATURE GRANULOCYTE # (AUTO) 0.1 (0.0-1.0); IMMATURE GRANULOCYTE % (AUTO) 0.4 % (0.0-5.0); LYMPHOCYTES # (AUTO) 1.6 K/uL (0.60-3.4); LYMPHOCYTES % (AUTO) 13.1 (10.0-50.0); MEAN CORPUSCULAR HGB CONC 32.9 (31.8-35.4); MEAN CORPUSCULAR VOLUME 103.4 fl (81.0-99.0); MONOCYTES # (AUTO) 0.9 K/uL (0.4-2.0); MONOCYTES % (AUTO) 7.5 (0-10); NEUTROPHILS # (AUTO) 8.5 K/ul (2.0-6.9); NEUTROPHILS % (AUTO) 68.8 % (42.2-75.2); PLATELET COUNT 166 10^3/uL (140-440); RDW COEFFICIENT OF VARIATION 15.2 % (11.6-14.8); RED BLOOD COUNT 2.68 10^6/ul (4.20-5.40); WHITE BLOOD COUNT 12.34 K/ul (4.6-10.2)
[2023-06-04 05:37] LABS: ALANINE AMINOTRANSFERASE 22.6 U/L (0-35); ALBUMIN 2.23 g/dL (3.5-5.0); ALKALINE PHOSPHATASE 135.8 U/L (53-141); BILIRUBIN,TOTAL 3.76 mg/dL (0.2-1.3); BLOOD UREA NITROGEN 11.6 mg/dL (7-17); CALCIUM 7.48 mg/dL (8.4-10.2); CARBON DIOXIDE 26.5 mmol/L (22-30.0); CHLORIDE 105.9 mmol/L (98-107); CREATININE 0.92 mg/dL (0.60-1.30); GLUCOSE 76.6 mg/dL (74-106); POTASSIUM 3.16 mmol/L (3.5-5.1); SODIUM 137.9 mmol/L (134.5-145); TOTAL PROTEIN 5.7 g/dL (6.3-8.2)
[2023-06-04] MEDS: CIPRO PO SCH (05:56)
[2023-06-04] MEDS: LASIX TAB PO SCH (05:56)
[2023-06-04] MEDS ORDERED: K-DUR PO ONE (08:11)
[2023-06-04] MEDS: FOLIC ACID PO SCH (08:51)
[2023-06-04] MEDS: THIAMINE PO SCH (08:51)
[2023-06-04] MEDS: MULTIVITAMIN TABLET PO SCH (08:51)
[2023-06-04] MEDS: MOTRIN PO PRN (09:33)
[2023-06-04 10:25] VITALS: BP 92/53; PULSE 92; RESP 15; TEMP 98.1
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
== END 2023-06-04 13:30 | DRG 602 ==
LOC: ED 20:05 → MEDSURG B 20:05
PROVIDERS: ADMIT Hospitalist; ATTEND Physician Assistant
DX: N39.0 Urinary tract infection, site not specified; Z16.12 Extended spectrum beta lactamase (ESBL) resistance; M62.81 Muscle weakness (generalized); B96.20 Unspecified Escherichia coli [E. coli] as the cause of diseases classified elsewhere; I50.33 Acute on chronic diastolic (congestive) heart failure; K72.90 Hepatic failure, unspecified without coma; L53.9 Erythematous condition, unspecified; L03.115 Cellulitis of right lower limb; Z79.899 Other long term (current) drug therapy; F10.90 Alcohol use, unspecified, uncomplicated; R41.82 Altered mental status, unspecified; Z20.822 Contact with and (suspected) exposure to COVID-19